=== PATIENT | male | born 1935 | race Caucasian/White ===

== ENCOUNTER → 2016-11-10 | Day surgery (SDC) | payer MEDICARE, OTHER ==
[~2016-11-10] VITALS: Ht 175.2 cm; Wt 70.3 kg
[~2016-11-10] MED LIST: CIPROFLOXACIN500 MG PO; CRESTOR20 MG PO; Diltiazem180 MG PO; FAMOTIDINE40 MG PO; FLOMAX0.4 MG PO; HYDROCODONE BIT1 T11 PO; PRAMIPEXOLE DIHY1 MG PO; TAMSULOSIN HYD0.4 MG PO; VICODIN 500 MG-1 TAB PO
--- NOTE | ~2016-11-10 | PROC NOTE ---
[place], [place] PROCEDURE NOTE NAME: [facility] UNIT #: [id number] ROOM: DOCTOR: JOSEY ASHLEY MD,KRISTOPHER BIRTHDATE: [birth year] DOS: 11/10/2016 PROCEDURE PERFORMED: Bronchoscopy with transbronchial biopsy of right lower lobe. PREOPERATIVE DIAGNOSES: The patient with right lower lobe atelectasis. POSTOPERATIVE DIAGNOSES: The patient with right lower lobe atelectasis. PROCEDURE DESCRIPTION: Informed consent was obtained from the patient. The patient was brought to the OR and placed in supine position. Conscious sedation was administered by the Anesthesia Department. After achieving appropriate sedation, airway introduced into the mouth. Bronchoscope was advanced into the airway into laryngeal area. Epiglottis was seen which was noted without any abnormality. Vocal cords seemed to be yellowish in color, moving symmetrically with movements, excessive coughing noted. About 20 mL of diluted 2% lidocaine and 10 mL which I diluted in 220 mL volume was lavaged in the tracheal lumen and the right lower lobe endobronchial tree. After that the bronchoscopy was completed. Aaliyah noted sharp. The left upper lingular lower lobe bronchial opening was noted to be patent. No abnormalities noted. The right upper lobe bronchial opening was also noted. Occlusion of the right middle and right lower lobe bronchus was noted because of the extrinsic compression, possibly ____ and submucosal spread. Several transbronchial biopsies was done in the right lower lobe with the help of fluoroscopy without any difficulty. The patient tolerated the procedure very well with minimal if any bleeding noted. The procedure was well tolerated by the patient without difficulty. Postoperative findings will be discussed with the patient and the family members in detail. The bronchial washing was sent for all the needed cultures as well as cytology. The other biopsy was sent for pathology analysis. KRISTOPHER DOWLING MD CM:PROCNOTE:PROCEDURE NOTE [id number] KRISTOPHER ASHLEY MD
[2016-11-10 08:00] VITALS: BP 148/76
[2016-11-10 09:08] VITALS: BP 121/61
[2016-11-10 09:25] VITALS: BP 126/57
[2016-11-10 09:40] VITALS: BP 129/68
[2016-11-11 15:08] LABS: ACID FAST SPEC PROCESSING Concentration (.)
== END | disposition home or self-care (01) ==
LOC: SDC 11-08 08:00
PROVIDERS: Internal Medicine Critical Care Medicine
DX: C83.12 Mantle cell lymphoma, intrathoracic lymph nodes (principal); J98.11 Atelectasis; I10 Essential (primary) hypertension; K21.9 Gastro-esophageal reflux disease without esophagitis; Z98.890 Other specified postprocedural states; Z87.891 Personal history of nicotine dependence; J45.909 Unspecified asthma, uncomplicated

== ENCOUNTER → 2017-01-12 | Outpatient (CLI) | payer MEDICARE, OTHER ==
[2017-01-12 09:42] LABS: BUN 10 mg/dl (7-24); CARBON DIOXIDE 30 mmol/L (21-32); CHLORIDE 109 mmol/L (98-107); EST GLOM FILT AFRICAN AMERICAN > 60 ml/min; GLUCOSE 91 mg/dL (65-99); SODIUM 140 mmol/L (136-145)
== END | disposition home or self-care (01) ==
LOC: LAB 08:54
PROVIDERS: Urology
DX: R33.9 Retention of urine, unspecified (principal)

== ENCOUNTER → 2017-03-22 | Outpatient (CLI) | payer MEDICARE, OTHER ==
[~2017-03-22] MED LIST changes: +ACYCLOVIR400 MG PO; +CENTRUM SILVER1 EAC1 PO; +PERIACTIN4 MG PO; +SULFATRIM 800-120 ML PO; -TAMSULOSIN HYD0.4 MG PO; +TRAMADOL HCL50 MG PO
[2017-03-22 10:00] VITALS: BP 124/69
== END | disposition home or self-care (01) ==
LOC: INJECTION 09:30
DX: C83.18 Mantle cell lymphoma, lymph nodes of multiple sites (principal)

== ENCOUNTER → 2017-04-14 | Outpatient (CLI) | payer MEDICARE, OTHER ==
[2017-04-14 09:22] LABS: HEMATOCRIT 34.4 % (42.0-52.0); HEMOGLOBIN 11.2 g/dl (14.0-18.0); MEAN CORPUSCULAR HGB 32.6 pg (27.0-31.0); MEAN CORPUSCULAR HGB CONC 32.6 g/dl (33.0-37.0); MEAN PLATELET VOLUME 9.1 fl (9.6-12.3); PLATELET COUNT AUTOMATED 191 10*3/uL (130-400); RED BLOOD COUNT 3.44 10*6/uL (4.50-5.90); RED CELL DISTRI WIDTH 17.9 % (0-14.5); WHITE BLOOD COUNT 2.9 10*3/uL (4.8-10.8)
[2017-04-14 09:57] LABS: BUN 20 mg/dl (7-24); CREATININE 1.16 mg/dL (0.70-1.30)
[2017-04-14 10:36] LABS: PLATELET SUFFICIENCY NORMAL (NORMAL); TOTAL CELLS COUNTED 100 #CELLS
== END | disposition home or self-care (01) ==
LOC: LAB 09:02
PROVIDERS: Internal Medicine Hematology & Oncology
DX: C83.18 Mantle cell lymphoma, lymph nodes of multiple sites (principal)

== ENCOUNTER → 2017-04-19 | Outpatient (CLI) | payer MEDICARE, OTHER ==
[2017-04-19 11:20] VITALS: BP 135/66
== END | disposition home or self-care (01) ==
LOC: INJECTION 04-18 11:30
DX: C83.18 Mantle cell lymphoma, lymph nodes of multiple sites (principal)

== ENCOUNTER → 2017-05-05 | Outpatient (CLI) | payer MEDICARE, OTHER ==
[2017-05-05 09:42] LABS: EOS # 0.3 10*3/uL (0.0-0.4); EOS % 7.1 % (1.0-4.0); HEMATOCRIT 36.5 % (42.0-52.0); LYMPH # 1.6 10*3/uL (1.3-4.4); LYMPH % 40.4 % (27.0-41.0); MEAN CELL VOLUME 98.9 fl (80.0-94.0); MEAN CORPUSCULAR HGB 32.5 pg (27.0-31.0); MEAN CORPUSCULAR HGB CONC 32.9 g/dl (33.0-37.0); MEAN PLATELET VOLUME 9.8 fl (9.6-12.3); MONO # 0.6 10*3/uL (0.1-1.0); NEUT # 1.5 10*3/uL (2.3-7.9); NEUT % 36.8 % (47.0-73.0); PLATELET COUNT AUTOMATED 176 10*3/uL (130-400); RED BLOOD COUNT 3.69 10*6/uL (4.50-5.90); RED CELL DISTRI WIDTH 15.3 % (0-14.5); WHITE BLOOD COUNT 4.1 10*3/uL (4.8-10.8)
[2017-05-05 09:50] LABS: BUN 14 mg/dl (7-24); CREATININE 1.15 mg/dL (0.70-1.30)
== END | disposition home or self-care (01) ==
LOC: LAB 08:59
PROVIDERS: Internal Medicine Hematology & Oncology
DX: C83.18 Mantle cell lymphoma, lymph nodes of multiple sites (principal)

== ENCOUNTER → 2017-06-02 | Outpatient (CLI) | payer MEDICARE, OTHER ==
[2017-06-02 09:52] LABS: HEMATOCRIT 33.8 % (42.0-52.0); HEMOGLOBIN 11.1 g/dl (14.0-18.0); MEAN CELL VOLUME 98.5 fl (80.0-94.0); MEAN CORPUSCULAR HGB 32.4 pg (27.0-31.0); MEAN CORPUSCULAR HGB CONC 32.8 g/dl (33.0-37.0); MEAN PLATELET VOLUME 9.4 fl (9.6-12.3); PLATELET COUNT AUTOMATED 89 10*3/uL (130-400); RED BLOOD COUNT 3.43 10*6/uL (4.50-5.90); RED CELL DISTRI WIDTH 13.1 % (0-14.5); WHITE BLOOD COUNT 2.1 10*3/uL (4.8-10.8)
[2017-06-02 10:16] LABS: ATYPICAL LYMPHS 1 % (0-0); PLATELET SUFFICIENCY LOW (NORMAL); TOTAL CELLS COUNTED 100 #CELLS
[2017-06-02 10:19] LABS: CHLORIDE 107 mmol/L (98-107); POTASSIUM 4.5 mmol/L (3.5-5.1); SODIUM 142 mmol/L (136-145)
[2017-06-02 10:28] LABS: ALBUMIN 3.6 gm/dl (3.1-4.5); ALKALINE PHOSPHATASE 53 U/L (45-117); BUN 17 mg/dl (7-24); CREATININE 1.06 mg/dL (0.70-1.30); SGOT/AST 26 IU/L (3-35); SGPT/ALT 23 U/L (12-78); TOTAL PROTEIN 6.6 gm/dL (6.4-8.2)
== END | disposition home or self-care (01) ==
LOC: LAB 08:54
PROVIDERS: Internal Medicine Hematology & Oncology
DX: C83.18 Mantle cell lymphoma, lymph nodes of multiple sites (principal)

== ENCOUNTER → 2017-06-07 | Outpatient (CLI) | payer MEDICARE, OTHER ==
[2017-06-07 09:40] VITALS: BP 130/62
== END | disposition home or self-care (01) ==
LOC: INJECTION 09:30
DX: C83.18 Mantle cell lymphoma, lymph nodes of multiple sites (principal)

== ENCOUNTER → 2017-07-21 | Outpatient (CLI) | payer MEDICARE, OTHER ==
[2017-07-21 09:38] LABS: HEMOGLOBIN 11.6 g/dl (14.0-18.0); MEAN CELL VOLUME 98.3 fl (80.0-94.0); MEAN CORPUSCULAR HGB 32.6 pg (27.0-31.0); MEAN CORPUSCULAR HGB CONC 33.1 g/dl (33.0-37.0); MEAN PLATELET VOLUME 9.1 fl (9.6-12.3); PLATELET COUNT AUTOMATED 127 10*3/uL (130-400); RED BLOOD COUNT 3.56 10*6/uL (4.50-5.90); RED CELL DISTRI WIDTH 12.8 % (0-14.5); WHITE BLOOD COUNT 2.7 10*3/uL (4.8-10.8)
[2017-07-21 10:01] LABS: ALBUMIN 3.5 gm/dl (3.1-4.5); BILIRUBIN, DIRECT 0.1 mg/dL (0.0-0.2); BUN 18 mg/dl (7-24); CHLORIDE 107 mmol/L (98-107); CHOLESTEROL 163 mg/dL (<200); CREATININE 1.22 mg/dL (0.70-1.30); HDL CHOLESTEROL 62 mg/dl (40-60); IRON 102 ug/dL (65-175); LDL CHOLESTEROL 82 mg/dL (9-159); PHOSPHOROUS 3.8 mg/dL (2.5-4.9); POTASSIUM 4.4 mmol/L (3.5-5.1); SGOT/AST 26 IU/L (3-35); SGPT/ALT 29 U/L (12-78); SODIUM 141 mmol/L (136-145); TOTAL IRON BINDING CAPACITY 472 ug/dl (250-450); TOTAL PROTEIN 6.8 gm/dL (6.4-8.2); TRIGLYCERIDES 95 mg/dl (<150); VLDL CHOLESTEROL 19 mg/dL (6-40)
[2017-07-21 10:02] LABS: ALKALINE PHOSPHATASE 59 U/L (45-117)
[2017-07-21 10:05] LABS: PLATELET SUFFICIENCY LOW (NORMAL); TOTAL CELLS COUNTED 100 #CELLS
[2017-07-21 10:53] LABS: FERRITIN 34.5 ng/mL (22.0-322.0); VITAMIN D, 25-HYDROXY 32.1 ng/mL (30-100)
== END | disposition home or self-care (01) ==
LOC: LAB 08:54
PROVIDERS: Internal Medicine
DX: E78.2 Mixed hyperlipidemia (principal); I10 Essential (primary) hypertension; E11.9 Type 2 diabetes mellitus without complications; C83.18 Mantle cell lymphoma, lymph nodes of multiple sites; M81.0 Age-related osteoporosis without current pathological fracture

== ENCOUNTER 2017-08-21 17:07 | Inpatient (IN) | payer MEDICARE, OTHER ==
[~2017-08-21] VITALS: Ht 177.8 cm; Wt 74.0 kg
[2017-08-21 17:18] VITALS: BP 165/102
[2017-08-21 17:42] LABS: BASO % 0.3 % (0.0-1.0); EOS # 0.1 10*3/uL (0.0-0.4); EOS % 2.9 % (1.0-4.0); HEMATOCRIT 37.1 % (42.0-52.0); HEMOGLOBIN 12.7 g/dl (14.0-18.0); LYMPH # 1.6 10*3/uL (1.3-4.4); LYMPH % 41.8 % (27.0-41.0); MEAN CELL VOLUME 97.1 fl (80.0-94.0); MEAN CORPUSCULAR HGB 33.2 pg (27.0-31.0); MEAN CORPUSCULAR HGB CONC 34.2 g/dl (33.0-37.0); MEAN PLATELET VOLUME 9.2 fl (9.6-12.3); MONO # 0.7 10*3/uL (0.1-1.0); NEUT # 1.3 10*3/uL (2.3-7.9); NEUT % 35.5 % (47.0-73.0); PLATELET COUNT AUTOMATED 139 10*3/uL (130-400); RED BLOOD COUNT 3.82 10*6/uL (4.50-5.90); RED CELL DISTRI WIDTH 12.8 % (0-14.5); WHITE BLOOD COUNT 3.7 10*3/uL (4.8-10.8)
[2017-08-21 17:49] VITALS: BP 142/91
[2017-08-21 17:51] LABS: ACT PARTIAL THROMBO TIME 35.5 SECONDS (20.8-31.5); INTERNATIONAL NORM RATIO 0.9 (2.0-3.5)
[2017-08-21 17:57] LABS: ALBUMIN 3.8 gm/dl (3.1-4.5); ALKALINE PHOSPHATASE 62 U/L (45-117); BUN 17 mg/dl (7-24); CHLORIDE 103 mmol/L (98-107); CREATININE 1.32 mg/dL (0.70-1.30); POTASSIUM 4.2 mmol/L (3.5-5.1); SGOT/AST 28 IU/L (3-35); SGPT/ALT 26 U/L (12-78); SODIUM 138 mmol/L (136-145); TOTAL PROTEIN 7.3 gm/dL (6.4-8.2)
[2017-08-21 18:10] VITALS: BP 143/82
[2017-08-21 20:00] VITALS: BP 116/59
[2017-08-21 20:56] VITALS: BP 114/56
[2017-08-21] MEDS ORDERED: CRESTOR20 M1 PO (21:01)
[2017-08-22 00:30] VITALS: BP 133/68
[2017-08-22 06:07] LABS: BASO % 0.4 % (0.0-1.0); EOS # 0.1 10*3/uL (0.0-0.4); EOS % 3.7 % (1.0-4.0); HEMOGLOBIN 11.6 g/dl (14.0-18.0); LYMPH # 0.7 10*3/uL (1.3-4.4); LYMPH % 25.8 % (27.0-41.0); MEAN CELL VOLUME 97.4 fl (80.0-94.0); MEAN CORPUSCULAR HGB 33.2 pg (27.0-31.0); MEAN CORPUSCULAR HGB CONC 34.1 g/dl (33.0-37.0); MEAN PLATELET VOLUME 9.4 fl (9.6-12.3); MONO # 0.5 10*3/uL (0.1-1.0); MONO % 17.7 % (3.0-9.0); NEUT # 1.4 10*3/uL (2.3-7.9); NEUT % 51.3 % (47.0-73.0); PLATELET COUNT AUTOMATED 137 10*3/uL (130-400); RED BLOOD COUNT 3.49 10*6/uL (4.50-5.90); WHITE BLOOD COUNT 2.7 10*3/uL (4.8-10.8)
[2017-08-22 06:29] LABS: ACT PARTIAL THROMBO TIME 30.7 SECONDS (20.8-31.5); INTERNATIONAL NORM RATIO 1.1 (2.0-3.5)
[2017-08-22 06:31] LABS: ALBUMIN 3.1 gm/dl (3.1-4.5); BUN 15 mg/dl (7-24); CHLORIDE 108 mmol/L (98-107); CREATININE 1.24 mg/dL (0.70-1.30); PHOSPHOROUS 3.3 mg/dL (2.5-4.9); POTASSIUM 4.4 mmol/L (3.5-5.1); SGOT/AST 23 IU/L (3-35); SGPT/ALT 23 U/L (12-78); SODIUM 141 mmol/L (136-145)
[2017-08-22 06:33] LABS: ALKALINE PHOSPHATASE 56 U/L (45-117); TOTAL PROTEIN 6.3 gm/dL (6.4-8.2)
[2017-08-22 07:36] LABS: VITAMIN D, 25-HYDROXY 27.5 ng/mL (30-100)
[2017-08-22 08:00] VITALS: BP 107/54
[2017-08-22 12:00] VITALS: BP 124/60
[2017-08-22] MEDS ORDERED: LOPRESSOR25 MG PO (12:42)
[2017-08-22] MEDS ORDERED: XARE20MG PO (12:42)
== END 2017-08-22 14:33 | disposition home or self-care (01) | DRG 309 ==
LOC: ED 17:07 → 5E 17:27 → EDHOLD 17:27 → ICCU 17:48 → 5E 19:56
PROVIDERS: Emergency Medicine; Internal Medicine Hospice and Palliative Medicine
DX: I48.91 Unspecified atrial fibrillation (principal); R65.10 Systemic inflammatory response syndrome (SIRS) of non-infectious origin without acute organ dysfunction; C83.10 Mantle cell lymphoma, unspecified site; D53.9 Nutritional anemia, unspecified; E83.41 Hypermagnesemia; I35.0 Nonrheumatic aortic (valve) stenosis; D72.821 Monocytosis (symptomatic); I48.92 Unspecified atrial flutter; D72.820 Lymphocytosis (symptomatic); R73.9 Hyperglycemia, unspecified; I10 Essential (primary) hypertension; E78.5 Hyperlipidemia, unspecified; Z79.899 Other long term (current) drug therapy; Z98.42 Cataract extraction status, left eye; Z98.41 Cataract extraction status, right eye; Z87.891 Personal history of nicotine dependence